=== PATIENT | female | born 1935 | race Asian ===

== ENCOUNTER 2018-05-30 09:13 | Outpatient (CLI) | payer OTHER, MEDICAID ==
[2018-05-30] MEDS ORDERED: GADOPENTETATE DIMEGLUMINE 15 ML VIAL IV ONE (10:04)
== END 2018-05-30 19:03 | disposition home or self-care (01) ==
LOC: SMI 09:13
DX: N85.00 Endometrial hyperplasia, unspecified (principal)
CPT/HCPCS: 72197; A9579